=== PATIENT | male | born 1980 | race Caucasian/White ===

== ENCOUNTER 2021-10-08 02:07 | Emergency (ER) | payer OTHER ==
[~2021-10-08] VITALS: Ht 177.8 cm; Wt 94.0 kg
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
[2021-10-08] MEDS ORDERED: CLINDAMYCIN 600MG PREMIX 50 ML IV ONE (03:00)
[2021-10-08] MEDS ORDERED: CLIN-95 PO (03:04)
[2021-10-08] MEDS ORDERED: BACI28.34 TP (03:04)
[2021-10-08] MEDS ORDERED: IV NORMAL SALINE 50ML 50 ML ONE (03:14)
[2021-10-08] MEDS ORDERED: cefTRIAXone SODIUM 1 GM VIAL ONE (03:14)
[2021-10-08 03:48] LABS: BASO # 0.1 x10^3/uL (0.0-0.2); BASO % 1 % (0-3); EOS # 0.1 x10^3/uL (0.0-0.7); EOS % 1 % (0-3); HEMATOCRIT 42.4 % (39.0-53.0); HEMOGLOBIN 14.7 g/dL (13.0-17.5); LYMPH # 1.2 x10^3/uL (1.0-4.8); LYMPH % 13 % (24-48); MEAN CORPUSCULAR HEMOGLOBIN 32 pg (25-35); MEAN CORPUSCULAR HGB CONC 35 g/dL (31-37); MEAN CORPUSCULAR VOLUME 93 fL (79-100); MONO # 0.7 x10^3/uL (0.0-1.1); MONO % 8 % (0-9); NEUT # 7.2 x10^3uL (1.8-7.7); NEUT % 78 % (31-73); PLATELET COUNT 201 x10^3/uL (140-400); RED BLOOD COUNT 4.57 x10^6/uL (4.30-5.70); RED CELL DISTRIBUTION WIDTH 12.7 % (11.5-14.5); WHITE BLOOD COUNT 9.2 x10^3/uL (4.0-11.0)
[2021-10-08 04:07] LABS: CALCIUM 9.1 mg/dL (8.5-10.1); GFR 81.6; POTASSIUM 3.3 mmol/L (3.5-5.1)
[2021-10-08 05:09] VITALS: BP 159/88
[2021-10-09] MEDS ORDERED: SULF1TAB24 PO (11:37)
== END 2021-10-08 05:09 | disposition home or self-care (01) ==
LOC: ER 02:07
DX: L02.01 Cutaneous abscess of face (principal); Z88.0 Allergy status to penicillin; Z88.1 Allergy status to other antibiotic agents
CPT/HCPCS: 10060; 36415; 80048; 85025; 87040; 96365; 96367; 99284; J0696; J3490

== ENCOUNTER 2021-10-09 10:43 | Emergency (ER) | payer OTHER ==
[~2021-10-09] VITALS: Ht 177.8 cm; Wt 93.0 kg
[~2021-10-09 10:43] MED LIST: BACI28.34 TP; CLIN-95 PO
[2021-10-09 10:58] VITALS: BP 142/77
[2021-10-09] MEDS ORDERED: SMZ/TMP 800/160MG TABLET. PO ONE (11:15)
[2021-10-09] MEDS ORDERED: SULF1TAB24 PO (11:37)
--- NOTE | 2021-10-09 11:37 | PHYS DOC ---
Past History Additional Past Medical Histor: tachycardia Past Surgical History: Cervical Fusion, Lumbar Laminectomy Additional Past Surgical Histo: MULTIPUL BACK AND CERVICAL SUGREYS Alcohol Use: Occasionally General Adult EDM: Chief Complaint: FACE PROBLEM HPI: HPI: 41-year-old male presents with facial abscess. The patient was seen by my colleague a couple days ago and had an I&D. He continues to have drainage and he is taking his clindamycin 3 times a day. He has had 2 days worth of doses thus far. He presents today because the swelling has not improved. He is not certain whether or not it is worse. He is just concerned the antibiotic may not be working. Patient denies any new complaints. Review of Systems: Review of Systems: Constitutional: Denies fever or chills Eyes: Denies change in visual acuity HENT: Denies nasal congestion or sore throat Respiratory: Denies cough or shortness of breath Cardiovascular: Denies chest pain or edema GI: Denies abdominal pain, nausea, vomiting, bloody stools or diarrhea : Denies dysuria Musculoskeletal: Denies back pain or joint pain Integument: Abscess left face Neurologic: Denies headache, focal weakness or sensory changes Endocrine: Denies polyuria or polydipsia Lymphatic: Denies swollen glands Psychiatric: Denies depression or anxiety Current Medications: Current Meds: Current Medications Medications (Trade) Dose Ordered Sig/Maria Guadalupe Start Time Stop Time Status Last Admin Dose Admin Trimethoprim/ Sulfamethoxazole (Bactrim Ds) 2 tab 1X ONCE 10/09/21 11:15 10/09/21 11:28 DC Allergies: Allergies: Allergies Coded Allergies Type Severity Reaction Last Updated Verified Penicillins Allergy Severe Unknown 10/08/21 Yes amoxicillin Allergy Severe Unknown 10/08/21 Yes azithromycin Allergy Severe Unknown 10/08/21 Yes Physical Exam: PE: Constitutional: Well developed, well nourished, no acute distress, non-toxic appearance. [] HENT: Normocephalic, atraumatic, bilateral external ears normal, oropharynx moist, no oral exudates, nose normal. [] Eyes: PERRLA, EOMI, conjunctiva normal, no discharge. [] Neck: Normal range of motion, no tenderness, supple, no stridor. [] Cardiovascular:Heart rate regular rhythm, no murmur [] Lungs & Thorax: Bilateral breath sounds clear to auscultation [] Abdomen: Bowel sounds normal, soft, no tenderness, no masses, no pulsatile masses. [] Skin: Warm erythematous skin of the left face with draining abscess. [] Back: No tenderness, no CVA tenderness. [] Extremities: No tenderness, no cyanosis, no clubbing, ROM intact, no edema. [] Neurologic: Alert and oriented X 3, normal motor function, normal sensory function, no focal deficits noted. [] Psychologic: Affect normal, judgement normal, mood normal. [] Current Patient Data: Vital Signs: Vital Signs Date Time Temp Pulse Resp B/P (MAP) Pulse Ox O2 Delivery O2 Flow Rate FiO2 10/09/21 10:58 98.7 92 18 142/77 (98) 96 EKG: EKG: [] Radiology/Procedures: Radiology/Procedures: [] Heart Score: C/O Chest Pain: N/A Risk Factors: Risk Factors: DM, Current or recent (<one month) smoker, HTN, HLP, family history of CAD, obesity. Risk Scores: Score 0 - 3: 2.5% MACE over next 6 weeks - Discharge Home Score 4 - 6: 20.3% MACE over next 6 weeks - Admit for Clinical Observation Score 7 - 10: 72.7% MACE over next 6 weeks - Early Invasive Strategies Course & Med Decision Making: Course & Med Decision Making Pertinent Labs and Imaging studies reviewed. (See chart for details) The patient's incision site is still open and draining. I expressed some purulent fluid from it. I was able to further explored with a sterile Q-tip shaft to attempt to break up any further loculations. More purulent material was expressed. I will add Bactrim DS 2 twice daily for 7 days to his clindamycin. The patient is leaving tomorrow to go back to his home state. He is a [place] from out of state. I did perform a wound culture and will send that to the lab for analysis. He is stable for discharge at this time. [] Chiquita Disclaimer: Chiquita Disclaimer: This electronic medical record was generated, in whole or in part, using a voice recognition dictation system. Departure Departure: Impression: Primary Impression: Abscess of face Disposition: HOME / SELF CARE / HOMELESS Condition: STABLE Referrals: PCP,NO (PCP) Patient Instructions: Abscess, [id number] Scripts Sulfamethoxazole/Trimethoprim (BACTRIM DS TABLET) 1 Each Tablet 2 TAB PO BID for cellulitis for 7 Days, #28 TAB 0 Refills Prov: ANSHUL LORA DO 10/09/21 ANSHUL LORA DO Oct 09, 2021 11:37
== END 2021-10-09 11:40 | disposition home or self-care (01) ==
LOC: ER 10:43
DX: L02.01 Cutaneous abscess of face (principal); Z88.0 Allergy status to penicillin; Z88.1 Allergy status to other antibiotic agents
CPT/HCPCS: 87071; 87077; 87186; 99283